=== PATIENT | male | born 2000 | race Caucasian/White ===

== ENCOUNTER 2024-08-14 12:31 | Emergency (ER) | payer MEDICAID ==
[~2024-08-14] VITALS: Ht 182.9 cm; Wt 79.5 kg
[2024-08-14 12:33] VITALS: TEMP 98.2
[2024-08-14 13:15] VITALS: BP 119/74; PULSE 62; RESP 17; O2SAT 98
[2024-08-14] MEDS ORDERED: SULF-261 PO (14:02)
[2024-08-14] MEDS: SULFAMETHOX/TRIMETH DS 800-160 MG/TABLET PO ONE (14:17)
== END 2024-08-14 14:30 | disposition home or self-care (01) ==
LOC: EMS 12:31
DX: L02.424 Furuncle of left upper limb (principal)
CPT/HCPCS: 99284; Z7502; Z7610